=== PATIENT | male | born 1970 | race African-American/Black ===

== ENCOUNTER 2023-07-10 12:15 | Emergency (ER) | payer OTHER ==
[~2023-07-10] VITALS: Ht 185.4 cm; Wt 83.9 kg
[2023-07-10 12:41] VITALS: BP_SYST 182; PULSE 87; RESP 18; TEMP 98.3; O2SAT 100
[2023-07-10 13:20] LABS: BASOPHILS # (AUTO) 0.1 K/uL (0.0-0.2); BASOPHILS % (AUTO) 1.1 % (0.0-2.0); EOSINOPHILS % (AUTO) 0.6 % (0.0-4.0); HEMATOCRIT 43.5 % (36-54); LYMPHOCYTES # (AUTO) 1.9 K/uL (1.0-5.5); LYMPHOCYTES % (AUTO) 31.7 % (20.5-51.5); MEAN CORPUSCULAR HEMOGLOBIN 27 pg (27-31); MEAN CORPUSCULAR HGB CONC 32 % (32-36); MEAN CORPUSCULAR VOLUME 85 fL (79.0-98.0); MONOCYTES # (AUTO) 0.6 K/uL (0.0-1.0); MONOCYTES % (AUTO) 10.5 % (1.7-9.3); NEUTROPHILS # (AUTO) 3.3 K/uL (1.8-7.7); NEUTROPHILS % (AUTO) 56.1 % (40.0-70.0); PLATELET COUNT (AUTO) 292 K/uL (130-430); RED BLOOD CELL COUNT(AUTO) 5.13 MIL/uL (4.2-6.2); RED CELL DISTRIBUTION WIDTH 16.3 % (9.0-15.0)
[2023-07-10] MEDS ORDERED: LABETALOL HCL 20 MG/4 ML CARTRIDGE IVP ONE ×2 (13:21→13:30)
[2023-07-10] MEDS ORDERED: LORazepam 2 MG/ML VIAL IVP ONE (13:30)
[2023-07-10 13:36] LABS: CALCIUM 9.3 mg/dL (8.4-11.0); CREATININE 1.37 mg/dL (0.55-1.30); POTASSIUM 4.1 mmol/L (3.5-5.1)
[2023-07-10 13:40] LABS: ALBUMIN 3.8 g/dL (3.4-4.8); TOTAL BILIRUBIN 0.3 mg/dL (0.0-1.0); TOTAL PROTEIN, SERUM 7.6 g/dL (6.4-8.3)
[2023-07-10] MEDS ORDERED: MECL-108 PO (15:58)
[2023-07-10 17:23] VITALS: BP_SYST 179; PULSE 84; RESP 16; TEMP 97.8; O2SAT 96
== END 2023-07-10 17:23 | disposition home or self-care (01) ==
LOC: SED 12:15
DX: R42 Dizziness and giddiness (principal); I10 Essential (primary) hypertension; R20.2 Paresthesia of skin; Z79.899 Other long term (current) drug therapy
CPT/HCPCS: 99285; 96374; 70450; 71045; 96375; 80053; 83880; 85025; 84484; 36415; 93005; 76376; J2060